=== PATIENT | male | born 1990 | race Caucasian/White ===

== ENCOUNTER 2017-12-06 07:47 | Emergency (ER) | payer BC ==
[~2017-12-06] VITALS: Ht 175.3 cm; Wt 81.7 kg
[2017-12-06] MEDS ORDERED: TESSALON PERLE100 MG PO (07:55)
[2017-12-06] MEDS ORDERED: DEXACIDIN EYE DR5 ML OTIC (07:56)
[2017-12-06] MEDS ORDERED: AMOX TR-K CLV1 EAC4 PO (07:56)
[2017-12-06 08:58] VITALS: BP 149/100
== END 2017-12-06 08:58 | disposition home or self-care (01) ==
LOC: M.ERS 07:47
DX: H66.91 Otitis media, unspecified, right ear (principal); H60.91 Unspecified otitis externa, right ear; F17.210 Nicotine dependence, cigarettes, uncomplicated